=== PATIENT | male | born 1975 | race Asian ===

== ENCOUNTER 2018-03-07 02:48 | Emergency (ER) | payer BC ==
[~2018-03-07] VITALS: Ht 182.9 cm; Wt 95.3 kg
[2018-03-07 02:53] VITALS: BP_SYST 135
[2018-03-07] MEDS ORDERED: LEVOFLOXACIN 500 MG/D5W 100 ML IV ONE (03:45)
[2018-03-07] MEDS ORDERED: NACL 0.9% 1,000 ML IV ONE (03:45)
[2018-03-07] MEDS ORDERED: metroNIDAZOLE 500 mg/NS 100 ML IV ONE (04:00)
[2018-03-07 04:25] LABS: BASOPHILS % (AUTO) 0.3 % (0.0-2.0); EOSINOPHILS % (AUTO) 0.2 % (0.0-4.0); HEMATOCRIT 48.7 % (36-54); HEMOGLOBIN 16.3 g/dL (14.0-18.0); LYMPHOCYTES # (AUTO) 0.3 K/uL (1.0-5.5); LYMPHOCYTES % (AUTO) 4.7 % (20.5-51.5); MEAN CORPUSCULAR HEMOGLOBIN 29 pg (27-31); MEAN CORPUSCULAR HGB CONC 34 % (32-36); MEAN CORPUSCULAR VOLUME 87 fL (79.0-98.0); MONOCYTES # (AUTO) 0.4 K/uL (0.0-1.0); MONOCYTES % (AUTO) 6.2 % (1.7-9.3); NEUTROPHILS % (AUTO) 88.6 % (40.0-70.0); PLATELET COUNT (AUTO) 205 K/uL (130-430); RED BLOOD CELL COUNT(AUTO) 5.57 MIL/uL (4.2-6.2); RED CELL DISTRIBUTION WIDTH 13.1 % (9.0-15.0); WHITE BLOOD COUNT (AUTO) 6.7 K/uL (4.8-10.8)
[2018-03-07 04:26] LABS: CALCIUM 9.3 mg/dL (8.4-11.0); CREATININE 1.19 mg/dL (0.55-1.30); POTASSIUM 3.6 mmol/L (3.5-5.1)
[2018-03-07 04:31] LABS: ALBUMIN 3.6 g/dL (3.4-4.8); TOTAL BILIRUBIN 0.6 mg/dL (0.0-1.0)
[2018-03-07 05:29] VITALS: BP_SYST 135
== END 2018-03-07 05:29 | disposition home or self-care (01) ==
LOC: SED 02:48
DX: R50.9 Fever, unspecified (principal); N41.0 Acute prostatitis
CPT/HCPCS: 36415; 80053; 85025; 87040; 96365; 96367; 99284; J1956; J3490; J7030

== ENCOUNTER 2022-12-26 09:35 | Emergency (ER) | payer BC ==
[~2022-12-26] VITALS: Ht 182.9 cm; Wt 97.5 kg
[2022-12-26 09:51] VITALS: BP_SYST 130
--- NOTE | 2022-12-26 10:50 | NUR ---
ER at bedside examining patient.
--- NOTE | 2022-12-26 10:57 | NUR ---
Radiologist bedside for xray exam.
--- NOTE | 2022-12-26 11:00 | NUR ---
Patient given written and verbal discharge instructions and verbalizes understanding. ER MD discussed with patient the results and treatment provided. Patient in stable condition. ID arm band removed. Patient educated on pain management and to follow up with PMD. Opportunity for questions provided and answered. Medication side effect fact sheet provided.
[2022-12-26] MEDS ORDERED: NAPR-688 PO (11:08)
--- NOTE | 2022-12-26 13:30 | NUR ---
Note junior in ED - 12/26/22 at 1514 by [email or web address] Patient given written and verbal discharge instructions and verbalizes understanding. ER discussed with patient the results and treatment provided. Patient in stable Patient educated on pain management and to follow up with PMD. Opportunity for questions provided and answered. Medication side effect fact sheet provided.
[2022-12-26 15:05] VITALS: BP_SYST 130
== END 2022-12-26 11:00 | disposition home or self-care (01) ==
LOC: SED 09:35
DX: S63.602A Unspecified sprain of left thumb, initial encounter (principal); Z79.899 Other long term (current) drug therapy; W23.0XXA Caught, crushed, jammed, or pinched between moving objects, initial encounter; Y93.K9 Activity, other involving animal care; Y92.89 Other specified places as the place of occurrence of the external cause; Y99.8 Other external cause status
CPT/HCPCS: 99283